=== PATIENT | female | born 1970 | race Caucasian/White ===

== ENCOUNTER 2016-12-21 09:12 | Emergency (ER) | payer SELFPAY ==
[~2016-12-21] VITALS: Ht 177.8 cm; Wt 108.2 kg
[2016-12-21 09:20] VITALS: TEMP 37.1; Ht 177.8 cm; Wt 108.2 kg
[2016-12-21] MEDS ORDERED: LIDOCAINE/EPINEPHRINE 1% 20 ML VIAL INFIL ONE (09:30)
--- NOTE | 2016-12-21 09:36 | EMERGENCY ROOM VISIT NOTE ---
History Report prepared by Laquita: King Hurd Under the Supervision of: Dr. Kevin Sandoval M.D. First contact with patient: 09:24 Chief Complaint: OTHER COMPLAINT Stated Complaint: LUMP ON RIGHT INNER THIGH History of Present Illness The patient is a 46 year old female who presents to the Emergency Room with complaints of a constant boil on the right inner thigh. The patient had a similar boil years ago that was incised and drained. The patient denies fevers, chills, nausea, or vomiting. She denies any history of MRSA. The patient travels around the country for her 's job. She is originally from [place] which is where the first boil was drained. Source of History: patient Position: leg (right thigh) Quality: other (boil) Timing: constant Associated Symptoms: No chills, No fevers, No nausea, No vomiting Review of Systems See HPI for pertinent positives & negatives. A total of 6 systems reviewed and were otherwise negative. Past Medical & Surgical Surgical Problems: (1) History of incision and drainage Family History Diabetes mellitus FHx: cancer FHx: heart disease Hypertension Seizures Social History Smoking Status: Current Every Day Smoker Marital Status: Housing Status: lives with family Current/Historical Medications Scheduled Cephalexin Monohydrate (Keflex), 500 MG PO QID Omeprazole (Prilosec), 20 MG PO DAILY Sulfa/Trimethoprim (Bactrim Ds 800MG/160MG), 1 TAB PO BID Allergies Coded Allergies: No Known Allergies (Unverified , 12/21/16) Physical Exam Vital Signs Date Time Temp Pulse Resp B/P Pulse Ox O2 Delivery O2 Flow Rate FiO2 12/21/16 11:08 84 20 140/98 96 12/21/16 10:15 89 16 128/90 95 Room Air 12/21/16 09:20 37.1 103 18 150/77 97 Room Air Physical Exam GENERAL: Patient is well appearing and in no acute distress. NECK: No stridor, no adenopathy, no meningismus, trachea is midline. ABDOMEN: Soft, nontender, bowel sounds positive, no masses appreciated, no peritonitis. EXTREMITIES: Normal motion all extremities, no cyanosis, no edema. NEUROLOGIC: Alert and oriented, no acute motor or sensory deficits, no focal weakness, cranial nerves grossly intact. SKIN: There is a 2 x 3 cm indurated firm abscess / phlegmon of the inner / upper thigh, area is tender to palpation. Medical Decision & Procedures Medications Administered Medications (Trade) Dose Ordered Sig/Jocelyn Route Start Time Stop Time Status Last Admin Dose Admin Lidocaine/ Epinephrine (Xylocaine/Epine 1% Inj) 20 ml ONE ONCE INFIL 12/21/16 09:30 12/21/16 09:31 DC 12/21/16 09:35 20 ML Trimethoprim/ Sulfamethoxazole (Septra Ds 800/ 160MG Tab) 1 tab NOW STAT PO 12/21/16 10:31 12/21/16 10:32 DC 12/21/16 11:06 1 TAB Cephalexin Monohydrate (Keflex Cap) 500 mg NOW ONCE PO 12/21/16 10:45 12/21/16 10:46 DC 12/21/16 11:05 500 MG Acetaminophen/ Hydrocodone Bitart ([place] 5/325mg Home Pack) 1 homepack UD ONCE PO 12/21/16 10:45 12/21/16 10:46 DC 12/21/16 11:06 1 HOMEPACK ED Course 0925: The patient was evaluated in room A2. A complete history and physical exam was performed. 0930: Lidocaine / Epinephrine 20 ml INFIL ordered. 1030: Incision & Drainage performed by Steffany Mckeon PA-C. 1031: Septra Ds 800/160 mg PO tab. 1045: [place] 5/325 mg PO homepack, Oxycodone IR 5 mg PO homepack, Keflex cap 500 mg PO. 1100: Reassessed the patient. Discussed the findings with her. She verbalized understanding. The patient is ready for discharge. Medical Decision Differential diagnosis includes abscess vs. DVT vs. phlegmon. 46 yr old female with right inner groin swelling. Consistent with infection and no other evidence of DVT. DC without any drainage on I&D. Still early phlegmon. Start bactrim/keflex. Aware symptoms to monitor for. Stable at discharge. She is not septic. Impression Primary Impression: Abscess of groin, right Scribe Attestation The scribe's documentation has been prepared under my direction and personally reviewed by me in its entirety. I confirm that the note above accurately reflects all work, treatment, procedures, and medical decision making performed by me. Departure Information Dispostion Home / Self-Care Prescriptions Sulfa/Trimethoprim (Bactrim Ds 800MG/160MG) Tab 1 TAB PO BID, #20 TAB Prov: Kevin Sandoval M.D. 12/21/16 Cephalexin Monohydrate (Keflex) 500 Mg Cap 500 MG PO QID, #40 CAP Prov: Kevin Sandoval M.D. 12/21/16 Referrals No Doctor, Assigned (PCP) Forms HOME CARE DOCUMENTATION FORM, IMPORTANT VISIT INFORMATION Patient Instructions ED Abscess Brandie, [facility]
[2016-12-21] MEDS ORDERED: OMEP20CA9 PO (09:48)
[2016-12-21] MEDS ORDERED: CEPH500C PO (10:31)
[2016-12-21] MEDS ORDERED: SULFAMETHOXAZOLE/TRIMETHOPRIM DS 800/160MG TAB PO STA (10:31)
[2016-12-21] MEDS ORDERED: SULF800T23 PO (10:31)
--- NOTE | 2016-12-21 10:37 | EMERGENCY ROOM VISIT NOTE ---
ED Visit Note I was asked by Dr. Sandoval to perform incision and drainage to the right groin abscess. The patient has an area of induration to the right groin measures approximately 2 cm in diameter. After saline and Betadine cleansing and 3 mL of 1% buffered lidocaine anesthesia, the abscess was incised with a number 11 scalpel blade. The skin was quite indurated. There is no obvious purulent discharge. The cavity was further probed with a needle power screwdriver operator. The abscess cavity was then copiously irrigated with sterile saline under pressure. The area was then packed with plain packing. The area was cleaned with sterile saline and dressed with bacitracin and a bulky bandage. The patient tolerated the procedure well.
[2016-12-21] MEDS ORDERED: CEPHALEXIN MONOHYDRATE 250 MG CAP PO ONE (10:45)
[2016-12-21] MEDS ORDERED: OXYCODONE IR HOME PACK PO ONE (10:45)
[2016-12-21] MEDS ORDERED: NORCO 5/325MG HOME PACK PO ONE (10:45)
[2016-12-21 11:08] VITALS: BP 140/98; PULSE 84; O2SAT 96
== END 2016-12-21 11:08 | disposition home or self-care (01) ==
LOC: C.EDB 09:14 → C.EDA 11:08
DX: L02.214 Cutaneous abscess of groin (principal); Z83.3 Family history of diabetes mellitus; Z82.49 Family history of ischemic heart disease and other diseases of the circulatory system; Z82.0 Family history of epilepsy and other diseases of the nervous system; F17.200 Nicotine dependence, unspecified, uncomplicated

== ENCOUNTER 2016-12-23 08:37 | Emergency (ER) | payer SELFPAY ==
[~2016-12-23] VITALS: Ht 177.8 cm; Wt 109.4 kg
[~2016-12-23 08:37] MED LIST: CEPH500C PO; OMEP20CA9 PO; SULF800T23 PO
[2016-12-23 08:49] VITALS: BP 121/87; PULSE 95; TEMP 37.4; O2SAT 95; Ht 177.8 cm; Wt 109.4 kg
--- NOTE | 2016-12-23 09:15 | EMERGENCY ROOM VISIT NOTE ---
ED Visit Note First contact with patient: 08:52 CHIEF COMPLAINT: Wound check HISTORY OF PRESENT ILLNESS: This 46-year-old female patient presents to the emergency department ambulatory for a recheck of right groin abscess. The patient has not had complaints. Previous care outlined has been followed without difficulty. The patient described their pain as mild, pinching at times , but currently 0/10, and is located within the wound. REVIEW OF SYSTEMS: A 6 system review of systems was completed with positives and pertinent negatives listed in the HPI. ALLERGIES: No known drug allergies MEDICATIONS: Unchanged from previous PMH: Unchanged from previous visit. PHYSICAL EXAM: Vital Signs reviewed, see Nurse's notes. Patient is afebrile, vital signs stable. GENERAL: This is a 46-year-old female, awake, alert, well appearing, no acute distress MUSCULOSKELETAL: Inspection of the right groin reveals a healing wound without purulence, redness, fluctuance, or warmth. SKIN: No sign of cellulitis. NEURO: No sensory or motor deficits noted. EMERGENCY DEPARTMENT COURSE AND DECISION MAKING: I examined the patient. Previous visits and medication history were reviewed. The packing was easily removed. Problem List Surgical Problems: (1) History of incision and drainage Status: Resolved Current/Historical Medications Scheduled Cephalexin Monohydrate (Keflex), 500 MG PO QID Omeprazole (Prilosec), 20 MG PO DAILY Sulfa/Trimethoprim (Bactrim Ds 800MG/160MG), 1 TAB PO BID Allergies Coded Allergies: No Known Allergies (Unverified , 12/23/16) Vital Signs Date Time Temp Pulse Resp B/P Pulse Ox O2 Delivery O2 Flow Rate FiO2 12/23/16 08:49 37.4 95 16 121/87 95 Room Air Departure Information Impression Primary Impression: Encounter for wound re-check Additional Impression: Abscess packing removal Dispostion Home / Self-Care Condition GOOD Referrals No Doctor, Assigned (PCP) Patient Instructions My [facility] [employer] Additional Instructions continue the antibiotics as prescribed, until finished Return with fevers, worsening pain, swelling, redness, warmth Problem Qualifiers
== END 2016-12-23 09:28 | disposition home or self-care (01) ==
LOC: C.EDB 08:39
DX: S31.109D Unspecified open wound of abdominal wall, unspecified quadrant without penetration into peritoneal cavity, subsequent encounter (principal); X58.XXXD Exposure to other specified factors, subsequent encounter